=== PATIENT | female | born 1990 | race Hispanic/Latino ===

== ENCOUNTER 2018-05-07 18:05 | Emergency (ER) | payer OTHER ==
[2018-05-07] MEDS ORDERED: HYDROXYZINE HCL 25 MG TABLET ONE (19:32)
== END 2018-05-07 19:51 | disposition home or self-care (01) ==
LOC: EDH 18:05
DX: F41.0 Panic disorder [episodic paroxysmal anxiety] (principal); Z72.0 Tobacco use; Z88.8 Allergy status to other drugs, medicaments and biological substances